=== PATIENT | female | born 2000 | race African-American/Black ===

== ENCOUNTER 2021-02-20 13:00 | Emergency (ER) | payer MEDICAID ==
[~2021-02-20] VITALS: Ht 160 cm; Wt 57.0 kg
[2021-02-20 15:15] VITALS: BP 118/68
[2021-02-20 15:16] LABS: BASOPHILS % 0.4 % (0.0-2.0); EOSINOPHILS % 0.7 % (0.0-5.0); HEMATOCRIT. 32.8 % (36.0-48.0); HEMOGLOBIN. 11.3 g/dL (12.0-16.0); LYMPHOCYTES % 27.1 % (20.0-50.0); MEAN CORPUSCULAR HEMOGLOBIN 30.4 pg (28.0-32.0); MEAN CORPUSCULAR VOLUME 88.2 fL (81.0-99.0); MEAN PLATELET VOLUME 9.2 fl (7.4-10.4); MONOCYTES % 7.3 % (2.0-8.0); NEUTROPHILS % 64.5 % (40.0-76.0); PLATELET 289 x1000/uL (130-400); RED BLOOD CELL COUNT 3.72 mill/uL (4.2-5.4)
[2021-02-20 15:20] LABS: CHLORIDE 109 mEq/L (98-107)
[2021-02-20 15:30] LABS: B-HCG QUANTITATIVE 25 mIU/mL (<3)
[2021-02-20] MEDS ORDERED: RHO(D) IMMUNE GLOBULIN 300 MCG/SYR IM ONE (16:00)
== END 2021-02-20 16:12 | disposition left against medical advice (07) ==
LOC: ER 13:00
DX: O03.9 Complete or unspecified spontaneous abortion without complication (principal)
CPT/HCPCS: 36415; 76830; 76856; 80053; 81025; 84702; 85025; 86850; 86900; 90384; 99284

== ENCOUNTER 2021-11-04 18:11 | Emergency (ER) | payer MEDICAID, OTHER ==
[~2021-11-04] VITALS: Ht 157.5 cm; Wt 57.0 kg
[2021-11-04] MEDS ORDERED: FAMOTIDINE 20MG/2ML VIAL IV STA (20:45)
[2021-11-04] MEDS ORDERED: MAGNESIUM/ALUMINUM HYDROXIDE/SIMETHICONE 30ML UDC PO STA (20:45)
[2021-11-04] MEDS ORDERED: ONDANSETRON 4MG ODT PO STA (20:45)
[2021-11-04 21:18] LABS: BASOPHILS % 0.5 % (0.0-2.0); EOSINOPHILS % 0.7 % (0.0-5.0); HEMATOCRIT. 34.9 % (36.0-48.0); HEMOGLOBIN. 11.9 g/dL (12.0-16.0); LYMPHOCYTES % 16.5 % (20.0-50.0); MEAN CORPUSCULAR HEMOGLOBIN 30.5 pg (28.0-32.0); MEAN CORPUSCULAR VOLUME 89.6 fL (81.0-99.0); MEAN PLATELET VOLUME 9.3 fl (7.4-10.4); MONOCYTES % 8.6 % (2.0-8.0); NEUTROPHILS % 73.7 % (40.0-76.0); PLATELET 276 x1000/uL (130-400); RED CELL DISTRIBUTION WIDTH 15.6 % (11.6-14.6)
[2021-11-04 21:25] LABS: CHLORIDE 111 mEq/L (98-107)
[2021-11-04 21:28] LABS: HCG SCREEN NEGATIVE
[2021-11-04] MEDS ORDERED: MORPHINE SULFATE 4 MG/ML CPJ (NOT FOR IM USE) IV ONE (22:30)
[2021-11-04] MEDS ORDERED: FAMOTIDINE 20MG TABLET PO SCH (22:45)
[2021-11-04] MEDS ORDERED: MORPHINE SULFATE 10 MG/ML CPJ IM ONE (22:45)
[2021-11-04 22:47] VITALS: BP 109/58
[2021-11-04] MEDS ORDERED: FAMO40TA70 MT (23:33)
== END 2021-11-05 00:04 | disposition home or self-care (01) ==
LOC: ER 18:11
DX: R10.13 Epigastric pain (principal); K29.70 Gastritis, unspecified, without bleeding; J45.909 Unspecified asthma, uncomplicated
CPT/HCPCS: 36415; 71046; 76700; 80053; 83690; 84703; 85025; 96372; 99285; J2270; Q0162